=== PATIENT | female | born 1990 | race Caucasian/White ===

== ENCOUNTER 2017-11-09 08:11 | Emergency (ER) | payer OTHER ==
[2017-11-09 08:49] VITALS: BP 101/61
--- NOTE | 2017-11-09 09:22 | UC ---
FLU HPI - HPI Summary HPI Summary: Pt c/o sudden onset of sore throat, tender lymph nodes, nasal congestion, sinus pressure X 2 days. Pt did not get flu vaccine this year and has known exposure to flu. - History of Current Complaint Chief Complaint: UCGeneralIllness Stated Complaint: EARS CONGESTION Time Seen by Provider: 11/09/17 08:45 Hx Obtained From: Patient Hx Last Menstrual Period: 10/18/17 ?: No Onset/Duration: Sudden Onset, Lasting Days, Still Present Severity Currently: Mild Severity Initially: Mild Pain Intensity: 0 Associated Signs & Symptoms: Positive: Myalgia, Cough, Sore Throat, Nasal Congestion, Headache Related Hx: Possible Flu/Infectious Exposure - Risk Factors Influenza Risk Factors: Negative - Allergy/Home Medications Allergies/Adverse Reactions: Allergies Allergy/AdvReac Type Severity Reaction Status Date / Time No Known Allergies Allergy Verified 11/09/17 08:46 PMH/Surg Hx/FS Hx/Imm Hx Previously Healthy: Yes - Surgical History Surgical History: Yes Surgery Procedure, Year, and Place: WISDOM TEETH EXTRACTION - Family History Known Family History: Positive: Hypertension, Other - father had bronchitis last week; several people in family with anxiety Family History: none - Social History Occupation: Employed Full-time Lives: With Family Alcohol Use: Occasionally Substance Use Type: None Smoking Status (MU): Light Every Day Tobacco Smoker Type: Cigarettes Amount Used/How Often: 7-10 CIGS PER DAY Length of Time of Smoking/Using Tobacco: 7-8 YRS Have You Smoked in the Last Year: Yes When Did the Patient Quit Smoking/Using Tobacco: PT PLANS TO QUIT TODAY. - Immunization History Most Recent Influenza Vaccination: no Vaccination Up to Date: No Review of Systems Constitutional: Chills, Fatigue Skin: Negative Eyes: Negative ENT: Sore Throat, Ear Ache, Sinus Congestion, Sinus Pain/Tenderness Respiratory: Cough Cardiovascular: Negative Gastrointestinal: Negative Genitourinary: Negative Motor: Negative Neurovascular: Negative Musculoskeletal: Myalgia Neurological: Headache Psychological: Negative Is Patient Immunocompromised?: No All Other Systems Reviewed And Are Negative: Yes Physical Exam Triage Information Reviewed: Yes Appearance: Well-Appearing Vital Signs: Initial Vital Signs Temp 98.3 F 11/09/17 08:43 Pulse 65 11/09/17 08:43 Resp 16 11/09/17 08:43 BP 101/61 11/09/17 08:43 Pulse Ox 100 11/09/17 08:43 Vital Signs Reviewed: Yes Eye Exam: Normal ENT Exam: Other ENT: Positive: Sinus tenderness Dental Exam: Normal Neck exam: Other Neck: Positive: Tenderness @ - bialteral submaxillary lymph nodes, Enlarged Nodes @ - bilateral submaxillary Respiratory Exam: Normal Cardiovascular Exam: Normal Musculoskeletal Exam: Normal Neurological Exam: Normal Psychological Exam: Normal Skin Exam: Normal Flu Course/Dx - Course Course Of Treatment: RApid flu: negative - Differential Dx/Diagnosis Differential Diagnosis/HQI/PQRI: Influenza, Upper Respiratory Infection Provider Diagnoses: Viral syndrome Discharge - Discharge Plan Condition: Stable Disposition: HOME Prescriptions: Guaifenesin/Pseudo 600/60(NF) [Mucinex D 600/60 (NF)] 1 tab PO Q12H #14 tab Patient Education Materials: Viral Syndrome (ED) Referrals: Margy Franco MD [Primary Care Provider] - If Needed Additional Instructions: Please follow up with your PCP or return to clinic as needed
== END 2017-11-09 09:40 | disposition home or self-care (01) ==
LOC: UCCORT 08:11
DX: B34.9 Viral infection, unspecified (principal); F17.210 Nicotine dependence, cigarettes, uncomplicated
CPT/HCPCS: 87502; 99212; G0463

== ENCOUNTER 2018-09-19 12:34 | Emergency (ER) | payer OTHER ==
[2018-09-19 14:11] VITALS: BP 120/55
--- NOTE | 2018-09-19 14:18 | UC ---
UC General HPI - HPI Summary HPI Summary: FREQUENT URINATION AND HESITANCY FOR 1.5 DAYS. NO BURNING. A LITTLE URGENCY. CURRENTLY 20 WEEKS . NO ABDOMINAL PAIN OR VAGINAL DISCHARGE/BLEEDING. - History of Current Complaint Chief Complaint: UCGU Stated Complaint: URINARY COMPLAINT Time Seen by Provider: 09/19/18 14:04 Hx Obtained From: Patient Hx Last Menstrual Period: 10/18/17 Pain Intensity: 0 Associated Signs & Symptoms: Negative: Abdominal Pain - Allergy/Home Medications Allergies/Adverse Reactions: Allergies Allergy/AdvReac Type Severity Reaction Status Date / Time No Known Allergies Allergy Verified 09/19/18 14:11 Home Medications: Home Medications Vits96/Iron Fum/Folic [ Tablets 27-0.8 mg] 1 tab PO DAILY 09/19 [History Confirmed 09/19/18] PMH/Surg Hx/FS Hx/Imm Hx - Additional Past Medical History Additional PMH: 20 WEEKS Previously Healthy: Yes - Surgical History Surgical History: Yes Surgery Procedure, Year, and Place: WISDOM TEETH EXTRACTION - Family History Known Family History: Positive: Hypertension, Other - father had bronchitis last week; several people in family with anxiety Family History: none - Social History Alcohol Use: Occasionally Substance Use Type: None Smoking Status (MU): Former Smoker Type: Cigarettes Amount Used/How Often: 7-10 CIGS PER DAY Length of Time of Smoking/Using Tobacco: 7-8 YRS Have You Smoked in the Last Year: Yes When Did the Patient Quit Smoking/Using Tobacco: PT PLANS TO QUIT TODAY. - Immunization History Most Recent Influenza Vaccination: no Vaccination Up to Date: No Review of Systems All Other Systems Reviewed And Are Negative: Yes Constitutional: Positive: Negative Skin: Positive: Negative Eyes: Positive: Negative ENT: Positive: Negative Respiratory: Positive: Negative Cardiovascular: Positive: Negative Gastrointestinal: Positive: Negative Genitourinary: Positive: Frequency, Urgency. Negative: Dysuria, Hematuria, Vaginal/Penile Discharge Motor: Positive: Negative Neurovascular: Positive: Negative Musculoskeletal: Positive: Negative Neurological: Positive: Negative Psychological: Positive: Negative Physical Exam Triage Information Reviewed: Yes Appearance: Well-Appearing Vital Signs: Initial Vital Signs Temp 98.4 F 09/19/18 14:05 Pulse 91 09/19/18 14:05 Resp 14 09/19/18 14:05 BP 120/55 09/19/18 14:05 Pulse Ox 100 09/19/18 14:05 Vital Signs Reviewed: Yes Eyes: Positive: Conjunctiva Clear ENT: Positive: Normal ENT inspection Neck: Positive: Supple, Nontender, No Lymphadenopathy Respiratory: Positive: Lungs clear, Normal breath sounds Cardiovascular: Positive: RRR, No Murmur Abdomen Description: Positive: Nontender, Soft, Other: - GRAVID UTERUS. Negative: CVA Tenderness (R), CVA Tenderness (L), Distended, Guarding, Hepatomegaly, Splenomegaly Bowel Sounds: Positive: Present Musculoskeletal: Positive: ROM Intact Neurological: Positive: Alert Psychological: Positive: Age Appropriate Behavior Skin Exam: Normal Diagnostics - Laboratory Diagnostic Studies Completed/Ordered: U/A= 3+LEUKOCYTES, NO BLOOD OR NITRITES. CULTURE IS PENDING. Course/Dx - Course Course Of Treatment: NO ACUTE ABDOMEN OR CONCERN FOR PYELOPNEPHRITIS - Differential Dx - Multi-Symptom Differential Diagnoses: Other - UTI, CYSTITIS, BLADDER COMPRESSION DUE TO - Diagnoses Provider Diagnosis: Urinary frequency Discharge - Sign-Out/Discharge Documenting (check all that apply): Patient Departure All imaging exams completed and their final reports reviewed: No Studies - Discharge Plan Condition: Stable Disposition: HOME Prescriptions: Cephalexin CAP* [Keflex CAP*] 500 mg PO BID 7 Days #14 cap Patient Education Materials: Urinary Urgency and Frequency (DC) Referrals: Sandra Peng CNM [Certified Nurse [employer]loader] - 5 Days - Billing Disposition and Condition Condition: STABLE Disposition: Home - Attestation Statements Provider Attestation: I was available for consult. This patient was seen by the REYNALDO. The patient was not presented to , seen by or examined by nm -Adraine Mejia MD
== END 2018-09-19 14:27 | disposition home or self-care (01) ==
LOC: UCCORT 12:34
DX: R35.0 Frequency of micturition (principal); O26.892 Other specified pregnancy related conditions, second trimester; Z3A.20 20 weeks gestation of pregnancy
CPT/HCPCS: 81003; 87086; 99212; G0463

== ENCOUNTER 2019-01-27 14:53 | Emergency (ER) | payer OTHER ==
[2019-01-27 15:37] VITALS: BP 132/77
--- NOTE | 2019-01-27 16:08 | ED ---
Throat Pain/Nasal Congestion - HPI Summary HPI Summary: 28 yr old female with the complaint of mild sinus pressure, clear runny nose, mild scratch to throat. Onset three days ago. No cough. No yellow or green discharge. no Fever. No other complaints. She is 40 weeks and to be induced in the next few days. She saw her OB yesterday and they are aware of URI as well. No other complaints. - History of Current Complaint Chief Complaint: UCGeneralIllness Time Seen by Provider: 01/27/19 15:43 - Allergies/Home Medications Allergies/Adverse Reactions: Allergies Allergy/AdvReac Type Severity Reaction Status Date / Time Penicillins Allergy Unknown Verified 01/27/19 15:38 Reaction Details PMH/Surg Hx/FS Hx/Imm Hx - Surgical History Surgery Procedure, Year, and Place: WISDOM TEETH EXTRACTION Infectious Disease History: No Infectious Disease History: Denies: Traveled Outside the [place] in Last 30 Days - Family History Known Family History: Positive: Hypertension, Other - father had bronchitis last week; several people in family with anxiety Family History: none - Social History Lives: With Family Alcohol Use: None Substance Use Type: Reports: None Smoking Status (MU): Former Smoker Type: Cigarettes Amount Used/How Often: 7-10 CIGS PER DAY Length of Time of Smoking/Using Tobacco: 7-8 YRS Have You Smoked in the Last Year: Yes Review of Systems Constitutional: Negative Positive: Other - runny nose, mild sore throat. Negative: Shortness Of Breath, Cough All Other Systems Reviewed And Are Negative: Yes Physical Exam Triage Information Reviewed: Yes Vital Signs On Initial Exam: Initial Vitals Temp Pulse Resp BP Pulse Ox 99.2 F 83 16 132/77 100 01/27/19 15:33 01/27/19 15:33 01/27/19 15:33 01/27/19 15:33 01/27/19 15:33 Vital Signs Reviewed: Yes Appearance: Positive: Well-Appearing, No Pain Distress Skin: Positive: Warm, Skin Color Reflects Adequate Perfusion Head/Face: Positive: Normal Head/Face Inspection Eyes: Positive: EOMI, DAMION ENT: Positive: Normal ENT inspection, Pharyngeal erythema - mild, Nasal congestion, TMs normal, Uvula midline. Negative: Nasal drainage, Muffled voice , Hoarse voice, Sinus tenderness Neck: Positive: Nontender Respiratory/Lung Sounds: Positive: Clear to Auscultation, Breath Sounds Present Cardiovascular: Positive: RRR. Negative: Murmur Abdomen Description: Positive: Other: - gravid Musculoskeletal: Positive: Strength/ROM Intact Neurological: Positive: Sensory/Motor Intact, Alert, Oriented to Person Place, Time, CN Intact II-III, Normal Gait, Speech Normal Psychiatric: Positive: Normal - [place] Coma Scale Best Eye Response: 4 - Spontaneous Best Motor Response: 6 - Obeys Commands Best Verbal Response: 5 - Oriented Coma Scale Total: 15 Diagnostics - Vital Signs Vital Signs Temp Pulse Resp BP Pulse Ox 01/27/19 15:33 99.2 F 83 16 132/77 100 - Laboratory Lab Statement: Any lab studies that have been ordered have been reviewed, and results considered in the medical decision making process. EENT Course/Dx - Course Course Of Treatment: 28 yr old with URI symptoms. DC home. - Diagnoses Provider Diagnoses: Upper respiratory infection Discharge - Sign-Out/Discharge Documenting (check all that apply): Patient Departure All imaging exams completed and their final reports reviewed: No Studies - Discharge Plan Condition: Good Disposition: HOME Patient Education Materials: Upper Respiratory Infection (ED) Referrals: No Primary Care Phys,NOPCP [Primary Care Provider] - [facility] [Outside] Additional Instructions: Be sure to follow up with your [facility] OPERATOR with any further concerns. - Billing Disposition and Condition Condition: GOOD Disposition: Home
== END 2019-01-27 16:15 | disposition home or self-care (01) ==
LOC: UCCORT 14:53
DX: J06.9 Acute upper respiratory infection, unspecified (principal); Z88.0 Allergy status to penicillin; Z87.891 Personal history of nicotine dependence
CPT/HCPCS: 99211; G0463